=== PATIENT | female | born 1980 ===

== ENCOUNTER 2020-08-20 12:27 | Inpatient (IN) | payer OTHER ==
[2020-08-20] MEDS: ELECTROLYTE-148 SOLN 1,000 ML IV SCH (12:45)
[2020-08-20 13:39] LABS: BASO % 0.5 % (0-2.0); EOS % 0.8 % (0-4.5); HEMATOCRIT 30.2 % (32.4-45.2); HEMOGLOBIN 9.9 GM/dL (10.7-15.3); LYMPH % 14.3 % (8-40); MCH 23.1 pg (25.7-33.7); MCHC 32.7 g/dl (32.0-36.0); MEAN CELL VOLUME 70.5 fl (80-96); MEAN PLT VOLUME 9.4 fl (7.5-11.1); MONO % 7.2 % (3.8-10.2); NEUT % 77.2 % (42.8-82.8); PLATELET COUNT 196 K/MM3 (134-434); RBC 4.28 M/mm3 (3.60-5.2); RDW 16.7 % (11.6-15.6); WHITE BLOOD COUNT 9.9 K/mm3 (4.0-10.0)
[2020-08-20 14:03] LABS: ACTIVATED PTT 27.1 SECONDS (25.2-36.5); INR 0.94 (0.83-1.09); PROTHROMBIN TIME (PATIENT) 11.1 SEC (9.7-13.0)
[2020-08-20 14:13] LABS: ALBUMIN 2.5 g/dl (3.4-5.0); BILIRUBIN,TOTAL 0.4 mg/dL (0.2-1); BLOOD UREA NITROGEN 3.9 mg/dL (7-18); CALCIUM 8.6 mg/dL (8.5-10.1); CREATININE 0.6 mg/dL (0.55-1.3); POTASSIUM 4.2 mmol/L (3.5-5.1); TOT PROT 7.3 g/dl (6.4-8.2)
[2020-08-20] MEDS ORDERED: ONDANSETRON 4 MG/2 ML VIAL IVPUSH PRN (14:28)
[2020-08-20 14:29] VITALS: BMI 35.5
[2020-08-20] MEDS ORDERED: CITRIC ACID/SODIUM CITRATE 30 ML UNIT-DOSE CUP PO ONE (14:33)
--- NOTE | 2020-08-20 14:41 | HP ---
Past Medical History - Admission Chief Complaint: twins in labor; malpresentation History Source: Patient Limitations to Obtaining History: No Limitations - Past Medical History Hepatobiliary: Yes: Other (cholistasis of ) ...: 3 ...Para: 2 ...Term: 2 ...: 0 ...Spon : 0 ...Induced : 0 ...Living Children: 2 ...Multiple Gestation: 0 ...LMP: 12/19/19 ... Weeks Gestation by Dates: 34.6 ...EDC by Dates: 09/25/20 ...EDC by Sono: 09/24/20 Heme/Onc: Yes: Anemia - Past Surgical History Past Surgical History: Yes: None Hx Myomectomy: No Hx Transabdominal Cerclage: No - Smoking History Smoking history: Never smoked Have you smoked in the past 12 months: No - Alcohol/Substance Use Hx Alcohol Use: No Home Medications - Allergies Allergies/Adverse Reactions: Allergies Allergy/AdvReac Type Severity Reaction Status Date / Time No Known Allergies Allergy Verified 08/20/20 14:08 - Home Medications Home Medications: Ambulatory Orders Vitamins (Sjr) - 1 tab PO DAILY 08/20/20 Physical Exam - Maternity Vital Signs: Vital Signs Temperature 99.1 F 08/20/20 12:45 Pulse Rate 92 H 08/20/20 12:45 Respiratory Rate 20 08/20/20 12:45 Blood Pressure 154/98 08/20/20 12:45 O2 Sat by Pulse Oximetry (%) Constitutional: Yes: Well Nourished Eyes: Yes: WNL HENT: Yes: WNL Neck: Yes: WNL Cardiovascular: Yes: WNL Lungs: Normal air movement - Abdominal Exam/OB Fundal Height: 45 Number of Fetuses: Multiple Presentation: Breech, Twins Contractions: Yes Regularity: Regular Intensity: Mod/Strong Monitor Mode: External Heart Rate (range): 150 Category: I Accelerations: Uniform Decelerations: None - Vaginal Exam/OB Vaginal Bleeding: No Speculum Exam: No Dilatation (cm): 2 cm Effacement (%): 90 Amniotic Membrane Status: Intact Presentation: [place] Breech Station: -2 - Labs Lab Results: CBC, BMP 08/20/20 13:10 08/20/20 13:10 Problem List - Problems (1) 35 weeks gestation of Code(s): Z3A.35 - 35 WEEKS GESTATION OF (2) Twins, both liveborn Code(s): Z37.2 - TWINS, BOTH LIVEBORN (3) Cholestasis during Code(s): O26.619 - LIVER AND BILIARY TRACT DISORD IN , UNSP TRIMESTER; K83.1 - OBSTRUCTION OF BILE DUCT Assessment/Plan in labor; for c section at 35 weeks; cholistasis of pegnancy
[2020-08-20] MEDS ORDERED: METHYLERGONOVINE MALEATE 0.2 MG/1 ML AMP IM PRN (16:28)
--- NOTE | 2020-08-20 16:37 | OP ---
Operative Note - Note: Operative Date: 08/20/20 Pre-Operative Diagnosis: twins/breech; cholistasis of ; 35 weeks Operation: primary c section; BTL Findings: live baby girls; footling breech = 8-9/ 9-9 Post-Operative Diagnosis: Same as Pre-op Surgeon: Fernando Brady [employer] Dining Car Steward/Stewardess: Krish Schmidt Anesthesia: Spinal Specimens Removed: placenta Estimated Blood Loss (mls): 700 Operative Report Dictated: Yes
[2020-08-20] MEDS ORDERED: CEFAZOLIN 1 GM/D5W 1 GM/50 ML BAG IVPB SCH (18:00)
[2020-08-20] MEDS ORDERED: CARBOPROST TROMETHAMINE 250 MCG/ML AMPUL IM ONE (18:27)
[2020-08-20] MEDS: OXYTOCIN 20 UNITS in 0.9% NS 20 UNIT/1,000 ML INFUS.BAG IV SCH ×2 (18:28→19:30)
[2020-08-20 18:29] LABS: HEMATOCRIT 31.5 % (32.4-45.2); HEMOGLOBIN 9.9 GM/dL (10.7-15.3); MCH 22.5 pg (25.7-33.7); MCHC 31.5 g/dl (32.0-36.0); MEAN CELL VOLUME 71.3 fl (80-96); PLATELET COUNT 178 K/MM3 (134-434); RBC 4.42 M/mm3 (3.60-5.2); RDW 16.9 % (11.6-15.6); WHITE BLOOD COUNT 11.9 K/mm3 (4.0-10.0)
[2020-08-20] MEDS ORDERED: LABETALOL HCL 5 MG/1 ML (100MG/20 ML VIAL) IVPUSH ONE (18:39)
[2020-08-20] MEDS ORDERED: FAMOTIDINE 20 MG/50 ML IVPB 20 MG/50 ML MG IVPB ONE (18:40)
[2020-08-20] MEDS ORDERED: MISOPROSTOL 200 MCG TABLET NR ONE (18:45)
--- NOTE | 2020-08-20 19:54 | PD.OB.PROG ---
Past Medical History - Primary Care Physician PCP:: Fernando Brady Documenting Provider Type: Laborist - Admission Chief Complaint: Informed by Nurse of bleeding of a delivery History of Present Illness: S/P delivery of a twin gestation with bleeding History Source: Patient - Nursing Documentation Maternal Triage Index: Maternal Triage Index ( Priority 3, Prompt MFTI) Hemorrhage Risk Assessment: Risk Level Medium Risk High Level Risk Factors for None Hemorrhage Medium Level Risk Factors for Multiple gestation Hemorrhage Low Level Risk Factors for No previous uterine incis,Four (4) or less Hemorrhage previous,No known bleeding,No history of PPH Nursing Documentation Reviewed: Yes - Past Medical History ...: 3 ...Para: 2 ...Term: 2 ...: 0 ...Spon : 0 ...Induced : 0 ...Living Children: 2 ...Multiple Gestation: 0 ...LMP: 12/19/19 ... Weeks Gestation by Dates: 34.6 ...EDC by Dates: 09/25/20 ...EDC by Sono: 09/24/20 - Past Surgical History Past Surgical History: Yes: - Smoking History Smoking history: Never smoked Have you smoked in the past 12 months: No - Alcohol/Substance Use Hx Alcohol Use: No Physical Exam - Obstetrical Vital Signs: Vital Signs Temperature 97.6 F 08/20/20 16:30 Pulse Rate 67 08/20/20 18:45 Respiratory Rate 18 08/20/20 18:45 Blood Pressure 159/102 H 08/20/20 18:45 O2 Sat by Pulse Oximetry (%) 100 08/20/20 18:45 Constitutional: Yes: Well Nourished Eyes: Yes: WNL HENT: Yes: WNL Neck: Yes: WNL Cardiovascular: Yes: WNL - Vaginal Exam/OB Vaginal Exam Deferred: No Vaginal Bleeding: Yes - Physical Exam Musculoskeletal: Yes: WNL Extremities: Yes: WNL Edema: No ...Motor Strength: WNL Psychiatric: Yes: WNL - Labs Lab Results: CBC, BMP 08/20/20 18:05 08/20/20 13:10 Assessment/Plan S/P delivery with hemorrhage Blood clots evacuated from vagina Hemabate and misoprostol administered IM and per rectum respectively Oxytocin drip in place Continue management
[2020-08-20] MEDS ORDERED: KETOROLAC TROMETHAMINE 30 MG/1 ML VIAL IVPUSH ONE (20:36)
[2020-08-20 21:11] LABS: EPI CELLS 2 /uL (0-25.1); HYALINE CASTS 0 /uL (0-3.1); PH,URINE 6.5 (5.0-8.0); URINE APPEARANCE CLEAR; URINE BACTERIA 12 /uL (0-1359); URINE BILIRUBIN NEGATIVE (NEGATIVE); URINE COLOR YELLOW; URINE GLUCOSE (UA) NEGATIVE (NEGATIVE); URINE KETONE NEGATIVE (NEGATIVE); URINE LEUK ESTERASE NEGATIVE (NEGATIVE); URINE NITRITE NEGATIVE (NEGATIVE); URINE PROTEIN TRACE (NEGATIVE); URINE RBC 93 /uL (0-23.9); URINE UROBILINOGEN 0.2 mg/dL (0.2-1.0); URINE WBC 3 /uL (0-25.8)
[2020-08-20 21:22] LABS: RETICULOCYTES 1.82 % (0.5-1.5)
[2020-08-20 21:23] LABS: INR 0.93 (0.83-1.09)
[2020-08-20 21:26] LABS: ACTIVATED PTT 26.8 SECONDS (25.2-36.5)
[2020-08-20] MEDS: LABETALOL HCL 200 MG TABLET (FP) PO SCH (21:30)
[2020-08-20 21:57] LABS: BILIRUBIN,TOTAL 0.4 mg/dL (0.2-1); BLOOD UREA NITROGEN 4.4 mg/dL (7-18); CALCIUM 8.3 mg/dL (8.5-10.1); CREATININE 0.7 mg/dL (0.55-1.3); URIC ACID 7.4 mg/dL (2.6-7.2)
[2020-08-20] MEDS ORDERED: LABETALOL HCL 200 MG TABLET (FP) PO SCH (22:15)
[2020-08-20] MEDS: CEFAZOLIN 1 GM/D5W 1 GM/50 ML BAG IVPB SCH (23:59)
[2020-08-21 08:37] LABS: BASO % 0.3 % (0-2.0); EOS % 0.2 % (0-4.5); HEMATOCRIT 25.7 % (32.4-45.2); HEMOGLOBIN 8.1 GM/dL (10.7-15.3); LYMPH % 14.1 % (8-40); MCH 22.8 pg (25.7-33.7); MCHC 31.7 g/dl (32.0-36.0); MEAN CELL VOLUME 72.1 fl (80-96); MEAN PLT VOLUME 9.8 fl (7.5-11.1); MONO % 7.3 % (3.8-10.2); NEUT % 78.1 % (42.8-82.8); PLATELET COUNT 168 K/MM3 (134-434); RBC 3.56 M/mm3 (3.60-5.2); RDW 16.7 % (11.6-15.6); WHITE BLOOD COUNT 13.9 K/mm3 (4.0-10.0)
[2020-08-21] MEDS: IBUPROFEN 600 MG TABLET (FP) PO PRN ×3 (09:03→20:27)
[2020-08-21] MEDS: CEFAZOLIN 1 GM/D5W 1 GM/50 ML BAG IVPB SCH ×2 (09:03→17:14)
[2020-08-21] MEDS: SIMETHICONE 80 MG TAB.CHEW (FP) PO PRN ×3 (09:04→20:26)
[2020-08-21] MEDS: LABETALOL HCL 200 MG TABLET (FP) PO SCH ×2 (09:23→22:25)
--- NOTE | 2020-08-21 09:29 | OP ---
DATE OF OPERATION: 08/20/2020 INDICATIONS: This patient is a 40-year-old 3, para 2 at 35 weeks gestation, twins , breech-breech in active labor. complicated by cholestasis of and prematurity. PREOPERATIVE DIAGNOSIS: Intrauterine at 35 weeks in labor with twins with breech-breech presentation. POSTOPERATIVE DIAGNOSIS: Intrauterine at 35 weeks in labor with twins with breech-breech presentation. OPERATION: Primary section and bilateral tubal ligation. SURGEON: Fernando Brady MD VISUAL ARTIST: Krish Schmidt MD ANESTHESIA: Spinal. FINDING: Baby A was a live baby girl, 's 8, 9, complete footling breech. Baby B 's 9, 9, complete footling breech. Ovaries and fallopian tubes were within normal limits. ESTIMATED BLOOD LOSS: About 700 mL. PROCEDURE: The patient was taken to the operating room, was prepped and draped in the usual sterile fashion after good level of spinal anesthesia was obtained. A Falcon catheter had been introduced into the bladder that was draining clear urine throughout the procedure. With the first knife a Pfannenstiel incision was made 2 fingerbreadths above the symphysis pubis and this incision was taken down through the subcutaneous tissue and into the fascia with the Bovie. The fascia was nicked in the midline and this incision was extended laterally on both sides with the Bovie. The fascia was then from the muscle in the midline both cephalad and caudad. The peritoneum was then identified and entered under direct visualization and this incision was extended cephalad and caudad. Low angle retractor was put in place to protect the bladder. A bladder flap was then created with the Metzenbaums and the low angle retractor was then repositioned to protect the bladder. With a Metzenbaums the lower uterine segment was entered and this incision was extended laterally on both sides. The bag of amniotic fluid of the first baby was ruptured and the baby was delivered from the footling breech with fundal pressure atraumatically. The baby was suctioned. The cord was clamped and cut and the baby was handed to the utilization manager who assigned 's 8 and 9. The second baby, baby B, the amniotic bag was then ruptured of clear fluid and the baby was delivered from the footling breech position with fundal pressure atraumatically. The cord was clamped and cut and the baby was handed to the utilization manager who assigned 's 9, 9. Placenta was then delivered manually. The placenta was delivered manually. The uterus was then brought into the abdominal cavity. It was cleaned of residual membranes and the uterine incision was closed in layers, the first layer running locking suture of 0 Vicryl, the second layer imbricating the first layer of 0 Vicryl. The bladder flap was then reapproximated with chromic. Hemostasis was checked and was satisfactory. Attention was then directed towards the left fallopian tube which was grasped with a Oswaldo. A loop was made in the middle of the fallopian tube, doubly tied with 2-0 plain. The loop was then cut and cauterized. The same procedure was carried out on the opposite fallopian tube, in this way achieving bilateral tubal ligation. Hemostasis was checked and was satisfactory. The uterus was then repositioned into the pelvic cavity. The lateral gutters were then suctioned of blood and fluid. Instrument count, sponge count, needle count was correct. The peritoneum was closed with chromic, the muscle reapproximated with chromic. The fascia was closed with 0 Vicryl and the skin was closed with 3-0 Vicryl subcutaneous stitch. A dressing was applied. Patient returned to recovery room in satisfactory condition. MD MELODY PALUMBO/[id number]
--- NOTE | 2020-08-21 11:10 | PN ---
Progress Note (short form) - Note Progress Note: POD #1: s/p c section for twins at 35 weeks gestation with mal presentation cholistasis of with elevated liver enzymes had episode of uterine bleeding that responded to meds elevated BP on Labetalol now stable exam: patient comfortable with minimal skin pruritus; no headaches abdomen soft; dressing dry, in place lochia normal I/P: stable; anemia will start iron; continue Labetalol Problem List - Problems (1) 35 weeks gestation of Code(s): Z3A.35 - 35 WEEKS GESTATION OF (2) Twins, both liveborn Code(s): Z37.2 - TWINS, BOTH LIVEBORN (3) Cholestasis during Code(s): O26.619 - LIVER AND BILIARY TRACT DISORD IN , UNSP TRIMESTER; K83.1 - OBSTRUCTION OF BILE DUCT
[2020-08-21] MEDS: FERROUS SO4 325 MG TABLET (FP) PO SCH ×2 (12:15→22:25)
[2020-08-21] MEDS: OXYTOCIN 20 UNITS in 0.9% NS 20 UNIT/1,000 ML INFUS.BAG IV SCH (14:24)
[2020-08-21] MEDS ORDERED: CEFAZOLIN 1 GM/D5W 1 GM/50 ML BAG ONE (16:57)
--- NOTE | 2020-08-21 20:19 | PN ---
Progress Note (short form) - Note Progress Note: Anesthesiology post op note s/p c section post op day one, under spinal anesthesia with duramorph for pain control. today pain is well controlled, no adverse anesthetic complications, no headache, nausea or vomiting, dept of anesthesiology will sign off care at this time.
[2020-08-21] MEDS ORDERED: IBUPROFEN 600 MG TABLET (FP) PO ONE (20:22)
[2020-08-21] MEDS ORDERED: oxyCODONE HCL 5 MG TABLET ONE (21:45)
[2020-08-21] MEDS ORDERED: BISACODYL 10 MG SUPP.RECT ONE (21:46)
[2020-08-21] MEDS: oxyCODONE HCL 5 MG TABLET PO PRN (21:49)
[2020-08-21] MEDS: BISACODYL 10 MG SUPP.RECT RC PRN (21:50)
[2020-08-22] MEDS: SIMETHICONE 80 MG TAB.CHEW (FP) PO PRN ×3 (03:03→14:35)
[2020-08-22] MEDS: oxyCODONE HCL 5 MG TABLET PO PRN ×3 (03:04→14:28)
[2020-08-22] MEDS: IBUPROFEN 600 MG TABLET (FP) PO PRN ×4 (03:04→20:19)
[2020-08-22] MEDS ORDERED: LABETALOL HCL 200 MG TABLET (FP) ONE (09:51)
[2020-08-22] MEDS: LABETALOL HCL 200 MG TABLET (FP) PO SCH ×3 (09:57→23:01)
[2020-08-22] MEDS: FERROUS SO4 325 MG TABLET (FP) PO SCH ×2 (09:57→22:20)
[2020-08-22] MEDS ORDERED: FLU VACCINE (FLULAVAL) PF 60 MCG/0.5 ML SYRINGE 2020-2021 IM ONE (10:00)
[2020-08-22] MEDS ORDERED: DIPHTH,PERTUSS(ACELL),TET 0.5 ML DISP.SYRIN IM ONE (10:00)
[2020-08-22] MEDS ORDERED: ACETAMINOPHEN 325 MG TABLET (FP) ONE (14:24)
[2020-08-22] MEDS: BISACODYL 10 MG SUPP.RECT RC PRN (14:36)
--- NOTE | 2020-08-22 19:42 | PN ---
Progress Note (short form) - Note Progress Note: POD#2: c/o gas pain; no flatus despitr rectal suppository vaginal bleeding minimal abdomen softly distended; dressing off; incision healing lochia normal I/P: gas distension; will stop narcotics; Motrin for pain MOM; enema if no results then SSE home in am Problem List - Problems (1) 35 weeks gestation of Code(s): Z3A.35 - 35 WEEKS GESTATION OF (2) Twins, both liveborn Code(s): Z37.2 - TWINS, BOTH LIVEBORN (3) Cholestasis during Code(s): O26.619 - LIVER AND BILIARY TRACT DISORD IN , UNSP TRIMESTER; K83.1 - OBSTRUCTION OF BILE DUCT
--- NOTE | 2020-08-22 19:48 | DS ---
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 Vital Signs: Vital Signs Temperature 98.5 F 08/22/20 10:00 Pulse Rate 88 08/22/20 10:00 Respiratory Rate 18 08/22/20 10:00 Blood Pressure 138/79 08/22/20 10:00 O2 Sat by Pulse Oximetry (%) 100 08/21/20 09:01 Constitutional: Yes: Well Nourished Eyes: Yes: WNL HENT: Yes: WNL Neck: Yes: WNL Cardiovascular: Yes: WNL Respiratory: Yes: WNL Internal Exam Deferred: Yes Uterus: Yes: Firm ....Post : Yes: Uterus non-tender Edema: No Wound/Incision: Yes: Clean/Dry, Well Approximated Labs: CBC, BMP 08/21/20 08:06 08/20/20 21:09 Delivery - Delivery Type of Anesthesia: Spinal Episiotomy/Laceration: None EBL (cc): 700 Delivery, Single - [place] Feeding Plan Initial Plan: Exclusive throughout hospitalization Delivery, Multiple Births - Stages of Labor Delivery Baby "A" Date: 08/20/20 Time: 15:26 Placenta/Membranes "A" Date: 08/20/20 Time: 15:28 Delivery Baby "B" Date: 08/20/20 Time: 15:27 Placenta/Membranes "B" Date: 08/20/20 Time: 15:28 First Stage Date: 08/19/20 Time: 22:00 - Condition of Multiple Births 1 (A) Pulping Machine Operator/Handy Worker Present: Yes Pulping Machine Operator: Comfort Polanco Gender: Female Weight: 2.495 kg Total Hours ROM (HRS/MINS): 3min [place] 2 (B) Pulping Machine Operator/Handy Worker Present: Yes Pulping Machine Operator: Comfort Polanco Gender: Female Weight: 2.268 kg Total Hours ROM (HRS/MINS): 3min - [place] 1 (A) 1 Minute Score: 8 [place] 1 (A) 5 Minutes Score: 9 2 (B) 1 Minute Score: 9 2 (B) 5 Minutes Score: 9 Remarks - Remarks Remarks: s/p c section; cholestasis; elevated liver enzymes anemia; gas distension I/P: home in am Discharge Summary Problems reviewed: Yes Reason For Visit: ADMIT C SECTION Current Active Problems 35 weeks gestation of (Acute) Cholestasis during (Acute) Twins, both liveborn (Acute) Procedures: Principal: c section; BTL Hospital Course: anemia; gas distention Plan of Treatment: home Condition: Good - Instructions Diet, Activity, Other Instructions: regular Disposition: HOME - Home Medications Comprehensive Discharge Medication List: Ambulatory Orders Vitamins (Sjr) - 1 tab PO DAILY 08/20/20 Prescription Drug Monitoring Program (I-STOP) results: I-STOP reviewed and no issues identified
[2020-08-22] MEDS: MAGNESIUM HYDROX 2400MG/30ML ORAL SUSPENSION 30 ML CUP PO PRN (20:10)
[2020-08-22] MEDS ORDERED: ONDANSETRON 4 MG/2 ML VIAL IVPUSH PRN (22:24)
[2020-08-22] MEDS ORDERED: BISACODYL 10 MG SUPP.RECT RC PRN (22:25)
[2020-08-23] MEDS: IBUPROFEN 600 MG TABLET (FP) PO PRN ×4 (00:31→18:30)
[2020-08-23] MEDS: SIMETHICONE 80 MG TAB.CHEW (FP) PO PRN ×4 (00:31→18:35)
[2020-08-23] MEDS: MAGNESIUM HYDROX 2400MG/30ML ORAL SUSPENSION 30 ML CUP PO PRN (06:35)
[2020-08-23 09:20] LABS: BASO % 0.2 % (0-2.0); EOS % 1.1 % (0-4.5); HEMATOCRIT 20.9 % (32.4-45.2); LYMPH % 16.6 % (8-40); MCHC 33.1 g/dl (32.0-36.0); MEAN CELL VOLUME 72.4 fl (80-96); MEAN PLT VOLUME 9.7 fl (7.5-11.1); MONO % 6.5 % (3.8-10.2); NEUT % 75.6 % (42.8-82.8); PLATELET COUNT 193 K/MM3 (134-434); RBC 2.89 M/mm3 (3.60-5.2); RDW 17.1 % (11.6-15.6)
[2020-08-23] MEDS: LABETALOL HCL 200 MG TABLET (FP) PO SCH ×2 (09:21→21:13)
[2020-08-23] MEDS: FERROUS SO4 325 MG TABLET (FP) PO SCH ×3 (09:21→21:13)
[2020-08-23 09:27] LABS: HEMOGLOBIN 6.9 GM/dL (10.7-15.3)
[2020-08-23] MEDS ORDERED: LABETALOL HCL 200 MG TABLET (FP) PO SCH (10:00)
--- NOTE | 2020-08-23 10:56 | PN ---
Progress Note (short form) - Note Progress Note: POD#3: patient severely anemic this am; passing flatus afte SSE no other complains abdomen soft; + flatus; incision healing well lochia normal I/P: severe anemia will hold discharge till am 2 units of PRBCs this am Problem List - Problems (1) 35 weeks gestation of Code(s): Z3A.35 - 35 WEEKS GESTATION OF (2) Twins, both liveborn Code(s): Z37.2 - TWINS, BOTH LIVEBORN (3) Cholestasis during Code(s): O26.619 - LIVER AND BILIARY TRACT DISORD IN , UNSP TRIMESTER; K83.1 - OBSTRUCTION OF BILE DUCT
[2020-08-23] MEDS: ACETAMINOPHEN 325 MG TABLET (FP) PO PRN ×2 (11:05→18:31)
[2020-08-24] MEDS: IBUPROFEN 600 MG TABLET (FP) PO PRN ×3 (00:13→13:04)
[2020-08-24] MEDS: SIMETHICONE 80 MG TAB.CHEW (FP) PO PRN ×2 (00:14→06:37)
[2020-08-24] MEDS: ACETAMINOPHEN 325 MG TABLET (FP) PO PRN ×3 (00:14→13:04)
[2020-08-24] MEDS: MAGNESIUM HYDROX 2400MG/30ML ORAL SUSPENSION 30 ML CUP PO PRN (06:19)
[2020-08-24] MEDS: LABETALOL HCL 200 MG TABLET (FP) PO SCH (09:20)
[2020-08-24] MEDS: FERROUS SO4 325 MG TABLET (FP) PO SCH (09:20)
[2020-08-24 11:09] LABS: BASO % 0.4 % (0-2.0); EOS % 1.8 % (0-4.5); HEMATOCRIT 26.4 % (32.4-45.2); HEMOGLOBIN 8.7 GM/dL (10.7-15.3); LYMPH % 15.8 % (8-40); MCH 24.1 pg (25.7-33.7); MCHC 32.8 g/dl (32.0-36.0); MEAN CELL VOLUME 73.5 fl (80-96); MEAN PLT VOLUME 9.5 fl (7.5-11.1); MONO % 5.4 % (3.8-10.2); NEUT % 76.6 % (42.8-82.8); PLATELET COUNT 211 K/MM3 (134-434); RDW 18.3 % (11.6-15.6); WHITE BLOOD COUNT 10.1 K/mm3 (4.0-10.0)
[2020-08-24 13:03] VITALS: BP 135/84; PULSE 76; TEMP 98
[2020-08-24] MEDS: ELECTROLYTE-148 SOLN 1,000 ML IV SCH (14:52)
[2020-08-24] MEDS: OXYTOCIN 20 UNITS in 0.9% NS 20 UNIT/1,000 ML INFUS.BAG IV SCH (14:52)
--- NOTE | 2020-08-24 17:08 | PATH ---
Surgical Pathology Report Patient Name: CECIL WAKEFIELD [facility]. Rec. 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 Specimen(s) Received A: PLACENTA B: PORTION OF LEFT FALLOPIAN TUBE C: PORTION OF RIGHT FALLOPIAN TUBE Clinical History twin gestation in labor, cholestasis of Final Diagnosis A. TWIN PLACENTA, SECTION: SEPARATE DISCS TWIN PLACENTA. PLACENTA A, 505 G THIRD TRIMESTER PLACENTA WITH MODERATE ACUTE CHORIOAMNIONITIS AND MECONIUM-LADEN MACROPHAGES. TRIVASCULAR UMBILICAL CORD WITH ACUTE MILD PHLEBITIS AND FOCAL FUNISITIS. PLACENTA B, 410 G THIRD TRIMESTER PLACENTA WITH TRIVASCULAR UMBILICAL CORD AND UNREMARKABLE PLACENTAL MEMBRANES. B. FALLOPIAN TUBE, LEFT, PARTIAL EXCISION: FULL LUMINAL PORTION OF UNREMARKABLE FALLOPIAN TUBE. C. FALLOPIAN TUBE, RIGHT, PARTIAL EXCISION: FULL LUMINAL PORTION OF UNREMARKABLE FALLOPIAN TUBE. Electronically Signed Temi Eden M.D. Gross Description A. Received in formalin labeled "placenta," are twin placentas comprised of 2 separate discs, joined by dividing membranes. The dividing membranes are purvis and opaque. There is one clamp marking the umbilical cord of placenta "A" and two clamps marking the umbilical cord of placenta "B", per the surgeon. Placenta "A" is 505 g and measures 17.5 x 13.5 x 2.7 cm. The attached membranes are purvis, translucent with focal opacities and display focal circum-marginate insertion. The umbilical cord measures 39 cm in length and averages 1.1 cm in diameter. The cord inserts eccentrically, 4.5 cm to the nearest margin. No true knots or strictures are identified. Cut surface of the umbilical cord reveals 3 vessels. The surface is sue green, meconium stained with minimal fibrin deposition and appropriate caliber vessels. The maternal surface is red-brown with focal defects. Sectioning reveals red-brown, spongy parenchyma. No lesions are identified. Placenta "B" is 410 g and measures 18.5 x 15.0 x 2.0 cm. The attached membranes are purvis, translucent with focal opacities and insert marginally. The umbilical cord measures 21 cm in length and averages 1 cm in diameter. The cord inserts eccentrically, 4.5 cm to the nearest margin. No true knots or strictures are identified. Cut surface of the umbilical cord reveals 3 vessels. The surface is sue blue with minimal fibrin deposition and appropriate caliber vessels. The maternal surface is red-brown with focal defects. Sectioning reveals red-brown, spongy parenchyma. No lesions are identified. [employer] sections are submitted in 7 cassettes as follows: 1-placenta "A" membrane roll and umbilical cord; 2-3-full thickness sections of placenta "A"; 4-dividing membrane; 5-placenta "B" membrane roll and umbilical cord; 6-7-full thickness sections of placenta "B". B. Received in formalin labeled "portion of left fallopian tube," is a 1.4 cm in length portion of fallopian tube. No fimbria are present. The outer surface is purvis verduzco and smooth. Sectioning reveals an unremarkable lumen. [employer] sections are submitted in one cassette. C. Received in formalin labeled "portion of right fallopian tube," is a 1.4 cm in length portion of fallopian tube. No fimbria are present. The outer surface is purvis verduzco and smooth. Sectioning reveals an unremarkable lumen. [employer] sections are submitted in one cassette. 08/23/[facility]
== END 2020-08-24 16:17 | disposition home or self-care (01) | DRG 783 ==
LOC: JLDR 12:27 → J3W 23:30
PROVIDERS: ADMIT Obstetrics & Gynecology; ATTEND Obstetrics & Gynecology
PROC: 10D00Z1 Extraction of Products of Conception, Low, Open Approach (ICD-10-PCS; principal; 2020-08-20)
PROC: 0U570ZZ Destruction of Bilateral Fallopian Tubes, Open Approach (ICD-10-PCS; 2020-08-20)
DX: O32.8XX0 Maternal care for other malpresentation of fetus, not applicable or unspecified (principal); O60.23X0 Term delivery with preterm labor, third trimester, not applicable or unspecified; K83.1 Obstruction of bile duct; O26.62 Liver and biliary tract disorders in childbirth; O30.043 Twin pregnancy, dichorionic/diamniotic, third trimester; Z3A.35 35 weeks gestation of pregnancy; Z37.2 Twins, both liveborn; Z30.2 Encounter for sterilization
CPT/HCPCS: 36415; 36430; 80053; 81003; 82977; 83010; 84550; 85025; 85027; 85032; 85045; 85610; 85730; 86780; 86850; 86900; 86901; 86922; 87340; 87389; 88302-TC; 88307-TC; 90715; P9058; Q2036; U0003